=== PATIENT | male | born 1960 | race Caucasian/White ===

== ENCOUNTER 2019-03-04 12:14 | Emergency (ER) | payer OTHER, SELFPAY ==
[2019-03-04 12:17] VITALS: BP 146/99; PULSE 81; RESP 18; TEMP 36.4; O2SAT 97
--- NOTE | 2019-03-04 12:21 | W.ED.GENAD ---
Discharge Plan Disposition Patient Disposition: HOME Condition: Improving Discharge Details Chief Complaint: SutureRem Clinical Impression: Encounter for removal of sutures Primary Care Provider: Unknown,Unknown ED Provider: Zita Landry Home Meds and New Rx's Prescriptions: Continued acetaminophen [Tylenol Extra Strength] 500 MG tablet 1,000 mg PO PRN PRNRF: 0 Discharge Instructions Additional Instructions: Return for any acute concerns. May remove Steri-Strips in approximately 3 days time. Medical Decision Making 58-year-old male presents for evaluation of suture removal. He was seen at [facility] 1 week ago. Sutures removed, Steri-Strips placed. Patient stable for discharge to home. HPI General Mode of arrival: ambulatory. Date/Time Provider Initiated Documentation: 03/04/19 12:19. Limitations to Documentation: no limitations. Information obtained by: patient. History of Present Illness 58 year old M presents to the emergency department with the chief complaint of Visit for suture removal, no other complaints, Patient did receive the following treatments prior to arrival, none Related Data Home Medications Medication Instructions Recorded Confirmed acetaminophen [Tylenol Extra 1,000 mg PO PRN PRN 05/23/13 03/04/19 Strength] Allergies Allergy/AdvReac Type Severity Reaction Status Date / Time No Known Allergies Allergy Verified 06/21/18 08:04 General Stated Complaint: SutureRem LISSETTE: 5 Review of Systems Review of Systems No fever, drainage. 6 systems reviewed and otherwise neg [facility] [place] Social History Smoking/Tobacco Use Status: Current every day Alcohol Intake: former Drug use: Never Do you feel safe at home: Yes Do you feel safe in your relationship?: Yes Exam Narrative Exam Narrative: GEN: awake, alert, oriented 3. Pleasant, well groomed, interactive. HEAD: Normocephalic, atraumatic ENT: Mucous membranes moist, oropharynx unremarkable, External ear exam unremarkable. Healing laceration left infraorbital/maxilla. EYES: PERRL, EOMI EXT: Full ROM, no edema, no rash Neuro: Grossly normal neurologic exam, conversant, interactive. Psych: Speech fluent, thoughts congruent, affect normal Course Vital Signs Temperature 36.4 C 03/04/19 12:17 Pulse 81 03/04/19 12:17 Respiratory Rate 18 03/04/19 12:17 Blood Pressure 146/99 H 03/04/19 12:17 Pulse Oximetry 97 03/04/19 12:17 Temperature 36.4 C 03/04/19 12:17 Temperature Source Skin 03/04/19 12:17 Pulse 81 03/04/19 12:17 Respiratory Rate 18 03/04/19 12:17 Respiratory Effort Non-Labored 03/04/19 12:20 Blood Pressure 146/99 H 03/04/19 12:17 Blood Pressure Position Sitting 03/04/19 12:17 Pulse Oximetry 97 03/04/19 12:17 Oxygen Delivery Method Room Air 03/04/19 12:17 Oxygen Flow Rate 0 03/04/19 12:17 Pain Level 0 03/04/19 12:17
== END 2019-03-04 12:43 | disposition home or self-care (01) ==
PROVIDERS: Emergency Provider Emergency Medicine
DX: S01.312D Laceration without foreign body of left ear, subsequent encounter (principal); W22.8XXD Striking against or struck by other objects, subsequent encounter; Z48.02 Encounter for removal of sutures
CPT/HCPCS: 99282; 99281

== ENCOUNTER 2019-04-04 00:25 | Outpatient (CLI) | payer OTHER, SELFPAY ==
--- NOTE | 2019-04-04 14:57 | DI.US_ITS ---
EXAM: US SCROTUM CLINICAL HISTORY: TESTICULAR PAIN LT, N50.812, PAIN X 3 YEARS, WORSENING, RECEIVED ANTIBIOTICS 5-6 M ONTHS AGO AT ANOTHER HOSPITAL AND FELT NO RELIEF. TECHNIQUE: Ultrasound was performed using standard protocol. COMPARISON: No exams were available for comparison FINDINGS: Right testicle measures 4.1 x 2.1 x 3.8 cm. The right epididymis measures 1.5 x 1.2 x 1.0 cm. The left testicle measures 3.3 x 2.9 x 3.6 cm. The left epididymis measures 1.0 x 0.8 x 0.8 cm. The testicular vascularity is normal bilaterally. There is no evidence of a mass. There are small bilat eral hydroceles.
== END 2019-04-04 00:45 ==
PROVIDERS: PCP Nurse Practitioner Family; Visit Provider Nurse Practitioner Family
DX: N50.812 Left testicular pain (principal); N43.2 Other hydrocele
CPT/HCPCS: 76870

== ENCOUNTER 2019-04-09 00:44 | Outpatient (CLI) | payer SELFPAY ==
[2019-04-09 11:03] LABS: Abs Immature Grans 0.02 k/cumm (0.0-0.09); Absolute Eosinophil Count 0.09 k/cumm (0.0-0.7); Absolute Lymphocyte Count 1.63 k/cumm (1.2-3.4); Absolute Monocyte Count 0.41 k/cumm (0.11-0.7); Absolute Neutrophil Count 2.88 k/cumm (1.2-6.7); Basophils % 1.9; Eosinophils % 1.8; HCT 43.2 % (40.0-50.0); HGB 14.6 g/dL (13.5-17.5); Immature Grans % 0.4; Lymphocytes % 31.8; Mean Corp. HGB Concentration 33.8 g/dL (32.0-36.0); Mean Corpuscular Hemoglobin 28.9 pg (27.0-33.0); Mean Corpuscular Volume 85.5 fL (80-95); Mean Platelet Volume 10.9 fL (8.0-11.0); Neutrophils % 56.1; Platelet Count 202 x1000/uL (130-400); RBC 5.05 m/cumm (4.50-6.00); RBC Distribution Width 13.4 % (11.8-14.1); White Blood Cell Count 5.13 k/cumm (4.4-10.8)
[2019-04-09 11:40] LABS: ALT 42 U/L (16-63); AST 21 U/L (15-37); Albumin 4.1 g/dL (3.4-5.0); Alkaline Phosphatase 86 U/L (46-116); Anion Gap 9.5 mmol/L (3-11); BUN 19 mg/dL (7-18); Bilirubin, Total 0.7 mg/dL (0.2-1.0); CO2 26.5 mmol/L (21.0-32.0); Calcium 8.4 mg/dL (8.5-10.1); Calculated LDL 100 mg/dL; Chloride 104 mmol/L (98-107); Cholesterol 166 mg/dL (50-200); Glucose 100 mg/dL (70-100); HDL Cholesterol 41 mg/dL (40-60); Potassium 4.2 mmol/L (3.5-5.1); Sodium 140 mmol/L (136-145); Total Protein 7.2 g/dL (6.4-8.2); Triglyceride 128 mg/dL (30-150)
== END 2019-04-09 01:04 ==
PROVIDERS: PCP Nurse Practitioner Family; Visit Provider Nurse Practitioner Family
DX: N50.812 Left testicular pain (principal); R13.10 Dysphagia, unspecified; J39.2 Other diseases of pharynx; K62.5 Hemorrhage of anus and rectum; R55 Syncope and collapse; R03.0 Elevated blood-pressure reading, without diagnosis of hypertension
CPT/HCPCS: 36415; 80053; 80061; 85025

== ENCOUNTER 2019-05-05 01:06 | Outpatient (CLI) | payer SELFPAY ==
--- NOTE | 2019-05-05 15:08 | DI.CT_ITS ---
EXAM: CT NECK W CLINICAL HISTORY: TONGUE LESION K14.8, LT NECK PAIN M54.2, NECK FULLNESS R22.1 TECHNIQUE: CT examination of cervical region was performed with a bolus infusion of 100 cc of Omnipa que 350. COMPARISON: No exams were available for comparison FINDINGS: Images obtained through the lung apices show no specific abnormality. Visualized aortic arch is un remarkable. No superior mediastinal adenopathy. No cervical adenopathy or mass. Salivary glands un remarkable in appearance. Note is made of lack of visualization of the vocal cords and supraglottic structures. Although no def inite mass is identified, the possibility of mass of the cords or the supraglottic region is not excl uded. Correlation with repeat CT, or direct laryngoscopy, is recommended. Visualized paranasal sinuses show slight mucoperiosteal thickening. Visualized portions of the brain are unremarkable. IMPRESSION: No evidence of a cervical mass or adenopathy. However note is made of nonvisualization of the vocal cords and surrounding structures, the possibility of laryngeal neoplastic lesion at this site is not excluded. Repeat CT or direct laryngoscopy recommended for further evaluation.
== END 2019-05-05 01:26 ==
PROVIDERS: PCP Nurse Practitioner Family; Visit Provider Otolaryngology Otolaryngology/Facial Plastic Surgery
DX: K14.8 Other diseases of tongue (principal); M54.2 Cervicalgia; R22.1 Localized swelling, mass and lump, neck; J38.7 Other diseases of larynx
CPT/HCPCS: 70491

== ENCOUNTER 2019-06-30 10:11 | Day surgery (SDC) | payer SELFPAY ==
[2019-06-30 10:29] VITALS: BP 147/108; PULSE 72; RESP 16; TEMP 35.7; O2SAT 98
[2019-06-30] MEDS: Lactated Ringers 1,000 ML 80 ML IV (11:00)
--- NOTE | 2019-06-30 14:40 | STOM_PTH ---
PATIENT: Rustam Horner LOC: [facility] U#:[id number] AGE/SX: 58/M ROOM: RE06/30/[address]: Romana Donnelly : 1960 BED: DIS: 06/30/2019 SPEC #: [id number] RECD: 06/30/19 17:31 STATUS: ANUSHA CASSIDY #: [id number] ANA MARIA: 06/30/19 14:[address]: Romana Donnelly DEPT: Surgical Specimen RECD BY: Kimmie Cordova ENTERED: 06/30/19 17:32 SP TYPE: STOMACH OTHR DR: Makayla Vital Tissues: 1 - BIOPSY BOWEL 2 - STOMACH BIOPSY 3 - STOMACH BIOPSY 4 - ESOPHAGUS BIOPSY 5 - ESOPHAGUS BIOPSY Procedures: GROSS AND MICRO LEVEL 4 Comments: [id number]
--- NOTE | 2019-06-30 15:19 | W.PM.ENDDOP ---
Date of service: 06/30/19 Time of Service: 15:19 Endoscopy Report DATE OF PROCEDURE: 06/30/19 PRE-OP DIAGNOSIS: gerd POST-OP DIAGNOSIS: other (prob barett's- path pd esophagitis/duodenitis/gastritis/diverticula ) PROCEDURE: egd & Bx CE ANESTHESIA: GETA ESTIMATED BLOOD LOSS: 10 PATHOLOGY: other DISPOSITION: same day PREP: Miralax/Dulcolax COLONOSCOPY RETRACTION TIME: 12 mins PROCEDURE DESCRIPTION: After informed consent was obtained the patient was take to the procedure room and placed in a supine position. Monitors were applied and a time out was done. The patients name, date of , procedure type, allergies to medications and metal in their body was reviewed. A bite block was placed and the patient was sedated. Once sedated and comfortable the gastroscope was advanced through the oropharynx which was grossly normal into the esophagus. The proximal and mid-esophagus were nl. In the distal esophagus there was sBarett's. The scope was advanced into the stomach and through the pylorus into the 3rd portion of the duodenum. The duodenum shows moderate doudentis. No ulcers or active/old bleeding. Biopsies were done. All specimens are retrieved and no bleeding is noted. The scope was retracted back into the stomach and biopsies were done to rule out H. pylori. There were several small punctate ulcers within the antrum. There is no signs of active or old bleeding. Biopsies are taken. There is moderate gastritis in a striped fashion in the body of the stomach. The scope was retroflexed. The cardia and fundus were noted to be normal. There no hiatal hernia noted. The scope was retracted back into the esophagus and biopsies were done of the GE junction to rule out Platt's. The Z line was irregular. there is one lg tongue of barett's, adn one smaller. and one small island of meteplastic gastric tissue. The GE junction was at 38 cm. The scope was removed and scopes exchanged. After informed consent was obtained the patient was taken to the procedure room and placed in a left decubitous position. Monitors were applied and a time out was done. The patients name, date of , procedure, allergies to medications and metal in their body was reviewed. The patient was then sedated. Once sedated and comfortable a rectal exam was done. External exam was normal. Internal exam revealed a normal sphincter tone and no palpable masses. The prostate nl. The scope was then introduced and retrofelexed. Grade I internal hemorrhoids were identified. The scope was then advanced to the cecum [] difficulty. The TI and appendiceal orifice were identified. The prep was poor. The scope was then slowly retracted over 12 minutes back into the rectum. The colon was extensively washes. Lesions less than 5 mm may have been missed. Polyps were removed no. The scope was removed and the patient was woken up and taken back to Same day surgery in stable condition. The patient tolerated the procedure well and there were no immediate complications. Follow up: The patient should follow up in 10 years unless they develop changes in bowel habits or other new gastrointestinal complaints.
--- NOTE | 2019-06-30 15:24 | W.PM.DSUDISC ---
Discharge Plan Disposition Patient Disposition: HOME Condition: Stable Discharge Details Reason For Visit: stomach and colon scope Attending Provider: Romana Donnelly Primary Care Provider: Makayla Vital Home Meds and New Rx's Prescriptions: New sucralfate [Carafate] 1 gram tablet 1 gm PO QACHS Qty: 120 RF: 12 Discontinued polyethylene glycol 3350 17 gram/dose powder 238 g PO ONCE Qty: 238 RF: 0 bisacodyl [Dulcolax (bisacodyl)] 5 mg tablet,delayed release (DR/EC) 5 mg PO ONCE Qty: 4 RF: 0 No Action omeprazole 40 mg capsule,delayed release(DR/EC) 40 mg PO DAILY RF: 0 acetaminophen [Tylenol Extra Strength] 500 MG tablet 1,000 mg PO PRN PRNRF: 0 Discharge Instructions Instructions: Gastroesophageal Reflux Disease (GEN), High Fiber Diet (GEN) Additional Instructions: Findings:severe esophagitis/gastritis/duodenitis. Possible Barett's Try to cut down on tobacco and alcohol Continue with lifestyle modifications: no alcohol, tobacco products, Aspirin or NSAID's (ibuprofen, Motrin, Naprosyn, aleve, etc), soda pop/any carbonated beverages, caffeine (including tea & chocolate). try to avoid: acidic foods, (tomatoes, citrus, onions, peppermints) spicy or fried/fatty foods. Do not lie down for 30 minutes after eating, and do not eat 2 hours prior to bedtime. Avoid wearing tight fitting clothing/ belts -cont on omeprazole Carafate 4x daily diverticular Dx- follow a high fiber diet and make sure you are moving your bowels regularly and not straining to go to the bathroom. Follow up: in office in 2wks no ibuporfen or NSAID's for 2wks Please call if you develop: fevers >101.5 Nausea or Vomiting Abdominal pain that is not transient DAY SURGERY UNIT POST COLONOSCOPY INSTRUCTIONS 1. Because there will be medication in your system for the next 24 hours, you may feel a little sleepy. Your coordination will be affected. Therefore: a. Do not drive or operate dangerous equipment for 24 hours. b. Do not drink alcohol beverages for 24 hours (not even beer). c. Plan to go home and rest for the day. 2. Generally there are no restrictions on your activity after a day or so has gone by, but you may feel a bit fatigued for a few days. 3 After you arrive home you may have a light meal and return to a normal diet as you can tolerate it without feeling sick to your stomach. 4. After surgery, you may feel pain or discomfort. This should be only transient, but if it persists please contact your doctor. 5. If there are any questions regarding the findings of your procedure, please feel free to contact your doctor. 6. If you are unable to contact your doctor with a problem, contact the hospital at [phone]. 7. Continue all your regular medications unless directed otherwise. I understand the above instructions and have no questions. Signature of Patient or Responsible Adult Escort Date/Time Name of Responsible Adult Escort Signature of Nurse Date/Time Stand Alone Forms: Colonoscopy Post Instructions, DSU Post EGD Instructions, Press Ganey (DSU) Activity:: no strenous activity or heavy lifting x 24 hrs Diet:: small light meals x 24 hrs Discharge Orders Discharge Orders: Discharge Order (Routine); Ordered 06/30/19 Ordered By: Romana Donnelly DS: Diagnosis Discharge Diagnosis (1) GERD (gastroesophageal reflux disease): Status: Chronic (2) Duodenitis: Status: Acute (3) Gastritis: Status: Acute (4) GERD with esophagitis: Status: Acute (5) Diverticula of colon: Status: Acute
[2019-06-30 15:26] VITALS: BP 99/57; RESP 16; O2SAT 92
[2019-06-30 16:05] VITALS: BP 151/97; PULSE 64; RESP 16; TEMP 36.3; O2SAT 98
== END 2019-06-30 16:35 | disposition home or self-care (01) ==
PROVIDERS: PCP Nurse Practitioner Family; Visit Provider Surgery
PROC: (CPT 43239; principal; 2019-06-30 10:45)
DX: Z12.11 Encounter for screening for malignant neoplasm of colon (principal); K64.0 First degree hemorrhoids; K21.0 Gastro-esophageal reflux disease with esophagitis; K29.50 Unspecified chronic gastritis without bleeding; B96.81 Helicobacter pylori [H. pylori] as the cause of diseases classified elsewhere; F17.220 Nicotine dependence, chewing tobacco, uncomplicated; F10.20 Alcohol dependence, uncomplicated
CPT/HCPCS: 43239; 45378; 88305

== ENCOUNTER 2023-08-31 18:14 | Outpatient (REF) | payer MEDICAID, SELFPAY ==
[2023-08-31 15:22] LABS: Anion Gap 14.5 mmol/L (3-11); BUN 17 mg/dL (7-18); CO2 22.5 mmol/L (21.0-32.0); CREATININE 1.1 mg/dL (0.70-1.30); Calcium 9.1 mg/dL (8.5-10.1); Chloride 101 mmol/L (98-107); Estimated GFR 76.85 (mL/min/1.73m2); Glucose 113 mg/dL (74-106); Potassium 4.1 mmol/L (3.5-5.1); Sodium 138 mmol/L (136-145)
== END 2023-08-31 18:15 | disposition home or self-care (01) ==
LOC: NCHCN 18:14
PROVIDERS: PCP Nurse Practitioner Family; Referring Provider Nurse Practitioner Family; Visit Provider Nurse Practitioner Family
DX: I10 Essential (primary) hypertension (principal)
CPT/HCPCS: 80048

== ENCOUNTER 2023-09-03 14:31 | Outpatient (REF) | payer MEDICAID, SELFPAY ==
[2023-09-03 15:29] LABS: Abs Immature Grans 0.02 10^3/uL (0.0-0.06); Absolute Basophil Count 0.05 10^3/uL (0.0-0.2); Absolute Eosinophil Count 0.09 10^3/uL (0.0-0.7); Absolute Monocyte Count 0.42 10^3/uL (0.1-0.8); Absolute Neutrophil Count 3.24 10^3/uL (1.2-6.7); Basophils % 0.9; Eosinophils % 1.6; HCT 45.1 % (40.0-50.0); HGB 15.2 g/dL (13.5-17.5); Immature Grans % 0.4; MCH 30.3 pg (27.0-33.0); MCHC 33.7 % (32.0-36.0); MCV 90 fL (80-95); MPV 11.3 fL (8.0-11.0); Monocytes % 7.5; Neutrophils % 57.6; Platelet Count 197 10^3/uL (130-400); RBC 5.01 10^6/uL (4.36-5.78); RDW 12.2 % (11.8-14.1); RDW-SD 40.3 fL; WBC 5.62 10^3/uL (4.4-10.8)
[2023-09-03 15:40] LABS: Prothrombin Time 10.1 sec (9.1-11.1)
[2023-09-03 15:42] LABS: ALT 48 U/L (16-63); AST 29 U/L (15-37); Albumin 3.7 g/dL (3.4-5.0); Alkaline Phosphatase 107 U/L (46-116); Anion Gap 11.9 mmol/L (3-11); BUN 20 mg/dL (7-18); Bilirubin, Total 0.7 mg/dL (0.2-1.0); CO2 24.1 mmol/L (21.0-32.0); CREATININE 1.2 mg/dL (0.70-1.30); Calcium 8.8 mg/dL (8.5-10.1); Chloride 103 mmol/L (98-107); Estimated GFR 69.23 (mL/min/1.73m2); Glucose 96 mg/dL (74-106); Potassium 4.2 mmol/L (3.5-5.1); Sodium 139 mmol/L (136-145)
== END 2023-09-03 14:32 | disposition home or self-care (01) ==
LOC: NCHCN 14:31
PROVIDERS: PCP Nurse Practitioner Family; Referring Provider Student in an Organized Health Care Education/Training Program; Visit Provider Student in an Organized Health Care Education/Training Program
DX: R16.0 Hepatomegaly, not elsewhere classified (principal)
CPT/HCPCS: 80053; 85025; 85610

== ENCOUNTER → 2023-09-16 02:33 | Outpatient (CLI) | payer MEDICAID, SELFPAY ==
--- NOTE | 2023-09-16 | DI.US_ITS ---
Exam(s) US ABDOMEN EXAM: US ABDOMEN CLINICAL HISTORY: HEPATOMEGALY,R16.0,EXTENSIVE ALCOHOL USE,PALPABLE LIVER TECHNIQUE: Ultrasound abdomen performed using standard protocol. COMPARISON: No exams were available for comparison FINDINGS: LIVER: 16.2 cm in length. Markedly increased echogenicity and decreased through transmission consist ent with moderate to severe hepatic steatosis. Focal area of sparing near falciform ligament. No ev idence of varices. No suspicious mass identified. No definite surface nodularity. GALLBLADDER: No evidence of cholelithiasis. No evidence of wall thickening. No pericholecystic fluid identified. WANG'S SIGN: Negative. BILIARY SYSTEM: No intrahepatic or extrahepatic biliary ductal dilation. KIDNEYS: Kidneys are symmetric in size. No evidence of renal calculi. No evidence of hydronephrosis. No renal mass or cyst identified. PANCREAS: Normal where visualized. SPLEEN: Not enlarged. ABDOMINAL AORTA AND IVC: Visualized portions normal caliber. ASCITES: None seen. IMPRESSION: Moderate to severe hepatic steatosis. DATA REPOSITORY:
== END ==
PROVIDERS: PCP Student in an Organized Health Care Education/Training Program; Visit Provider Student in an Organized Health Care Education/Training Program
DX: K76.0 Fatty (change of) liver, not elsewhere classified
CPT/HCPCS: 76700

== ENCOUNTER 2023-09-20 11:28 | Emergency (ER) | payer MEDICAID, SELFPAY ==
[2023-09-20] VITALS (21 sets, daily range): BP systolic 131–159; BP diastolic 82–99; PULSE 61–78; RESP 9–20; O2SAT 95–97
--- NOTE | 2023-09-20 11:30 | RT.EKG_ITS ---
APPROVED REPORT Exam: Resting ECG Reason for Exam: Chest Pain Patient Location: E HR:75 bpm ECG Measurements Heart Rate 75 AXIS MT 190 P 47 QRSd 97 QRS -22 QT 388 T 18 QTc 435 Conclusion Sinus rhythm...normal P axis, V-rate 60- 99 Inferior infarct, old...Q >35mS, II III aVF Anterior infarct, old...Q >40mS, abnormal ST-T, V2-V5 sinus rhythm, left axis, q waves III aVf and anterior leads
--- NOTE | 2023-09-20 11:45 | DI.RAD_ITS ---
Exam(s) XR CHEST 2V PA LATERAL EXAM: XR CHEST 2V PA LATERAL CLINICAL HISTORY: chest pain TECHNIQUE: 2D digital imaging was performed of the chest. Two images were obtained. PA and lateral views were obtained. COMPARISON: No exams were available for comparison FINDINGS: MEDIASTINUM: Normal. HEART: Normal. PULMONARY VASCULATURE: Normal. LUNGS: Clear. PLEURAL SPACE: No pleural effusion or pneumothorax. BONE:Within normal limits for the patient's age. There is an old healed right clavicular fracture. OTHER FINDINGS:Normal. IMPRESSION: No acute pulmonary findings. DATA REPOSITORY: RADIATION DOSE DELIVERED:
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
[2023-09-20] MEDS: Normal Saline 1,000 ML 1000 ML IV (11:59)
[2023-09-20] MEDS: Ondansetron 4 MG/2 ML VIAL IVP (12:01)
[2023-09-20] MEDS: Pantoprazole 40 MG VIAL IVP (12:08)
[2023-09-20 12:09] LABS: Abs Immature Grans 0.02 10^3/uL (0.0-0.06); Absolute Basophil Count 0.07 10^3/uL (0.0-0.2); Absolute Eosinophil Count 0.03 10^3/uL (0.0-0.7); Absolute Lymphocyte Count 1.61 10^3/uL (1.2-3.4); Absolute Monocyte Count 0.53 10^3/uL (0.1-0.8); Absolute Neutrophil Count 4.04 10^3/uL (1.2-6.7); Basophils % 1.1; Eosinophils % 0.5; HCT 46.3 % (40.0-50.0); Immature Grans % 0.3; Lymphocytes % 25.6; MCH 30.5 pg (27.0-33.0); MCHC 34.6 % (32.0-36.0); MCV 88 fL (80-95); MPV 10.8 fL (8.0-11.0); Monocytes % 8.4; Neutrophils % 64.1; Platelet Count 213 10^3/uL (130-400); RBC 5.25 10^6/uL (4.36-5.78); RDW-SD 38.2 fL
[2023-09-20 12:23] LABS: PTT Activated 24.5 sec (23.6-32.8); Prothrombin Time 10.5 sec (9.1-11.1)
[2023-09-20 12:30] LABS: ALT 53 U/L (16-63); AST 28 U/L (15-37); Albumin 3.9 g/dL (3.4-5.0); Alkaline Phosphatase 102 U/L (46-116); Anion Gap 12.9 mmol/L (3-11); BUN 17 mg/dL (7-18); Bilirubin, Total 0.9 mg/dL (0.2-1.0); CO2 25.1 mmol/L (21.0-32.0); CREATININE 1.2 mg/dL (0.70-1.30); Calcium 8.8 mg/dL (8.5-10.1); Chloride 102 mmol/L (98-107); Estimated GFR 69.23 (mL/min/1.73m2); Glucose 109 mg/dL (74-106); Lipase 49 U/L (16-77); Potassium 3.8 mmol/L (3.5-5.1); Sodium 140 mmol/L (136-145); Total Protein 7.8 g/dL (6.4-8.2); Troponin I < 50 ng/L (< or =60)
--- NOTE | 2023-09-20 12:40 | DI.VRAD_ITS ---
PROCEDURE INFORMATION: Exam: XR Chest Exam date and time: 09/20/2023 12:31 PM Age: 62 years old Clinical indication: Other: Chest pain TECHNIQUE: Imaging protocol: Radiologic exam of the chest. Views: 2 views. COMPARISON: MRI CHEST WO 12/29/2017 4:35 PM FINDINGS: Lungs: Unremarkable. No consolidation. Pleural spaces: Unremarkable. No pleural effusion. No pneumothorax. Heart/Mediastinum: Unremarkable. No cardiomegaly. Vasculature: Unfolding of the thoracic aorta. Bones/joints: Multilevel anterior osteophytes of the thoracic spine consistent with mild degenerative disease. IMPRESSION: No acute cardiopulmonary process. Dictated and Authenticated by: Hemanth Romo MD. Ordering:ANN-MARIE Meléndez MD
== END 2023-09-20 13:37 | disposition home or self-care (01) ==
LOC: ER 13:32
PROVIDERS: Emergency Provider Emergency Medicine; PCP Student in an Organized Health Care Education/Training Program
DX: R07.9 Chest pain, unspecified (principal); E78.5 Hyperlipidemia, unspecified; F17.290 Nicotine dependence, other tobacco product, uncomplicated
CPT/HCPCS: 80053; 83690; 93005; 96361; 96374; 96375; 99284; 71046; 84484; 85025; 85610; 85730; 93010; J2405; J2470

== ENCOUNTER 2023-10-01 15:13 | Outpatient (REF) | payer MEDICAID, SELFPAY ==
[2023-10-01 19:29] LABS: Abs Immature Grans 0.01 10^3/uL (0.0-0.06); Absolute Basophil Count 0.09 10^3/uL (0.0-0.2); Absolute Eosinophil Count 0.09 10^3/uL (0.0-0.7); Absolute Lymphocyte Count 1.89 10^3/uL (1.2-3.4); Absolute Monocyte Count 0.46 10^3/uL (0.1-0.8); Absolute Neutrophil Count 3.37 10^3/uL (1.2-6.7); Basophils % 1.5; Eosinophils % 1.5; HCT 45.9 % (40.0-50.0); HGB 15.1 g/dL (13.5-17.5); Immature Grans % 0.2; MCHC 32.9 % (32.0-36.0); MCV 91 fL (80-95); MPV 11.3 fL (8.0-11.0); Monocytes % 7.8; Platelet Count 190 10^3/uL (130-400); RBC 5.03 10^6/uL (4.36-5.78); RDW 12.2 % (11.8-14.1); RDW-SD 40.8 fL; WBC 5.91 10^3/uL (4.4-10.8)
[2023-10-01 19:57] LABS: ALT 51 U/L (16-63); AST 29 U/L (15-37); Alkaline Phosphatase 99 U/L (46-116); Anion Gap 10.5 mmol/L (3-11); BUN 23 mg/dL (7-18); Bilirubin, Total 0.6 mg/dL (0.2-1.0); CO2 25.5 mmol/L (21.0-32.0); CREATININE 1.2 mg/dL (0.70-1.30); Chloride 105 mmol/L (98-107); Estimated GFR 69.23 (mL/min/1.73m2); Glucose 89 mg/dL (74-106); Potassium 4.3 mmol/L (3.5-5.1); Sodium 141 mmol/L (136-145); Total Protein 7.4 g/dL (6.4-8.2)
== END 2023-10-01 15:14 | disposition home or self-care (01) ==
LOC: NCHCN 15:13
PROVIDERS: PCP Student in an Organized Health Care Education/Training Program; Visit Provider Student in an Organized Health Care Education/Training Program
DX: R07.9 Chest pain, unspecified (principal)
CPT/HCPCS: 80053; 85025

== ENCOUNTER → 2023-10-19 00:54 | Outpatient (CLI) | payer MEDICAID, SELFPAY ==
--- NOTE | 2023-10-19 | DI.RAD_ITS ---
Exam(s) XR CHEST 2V PA LATERAL EXAM: XR CHEST 2V PA LATERAL CLINICAL HISTORY: CHEST PAIN R07.9. TECHNIQUE: 2D digital imaging was performed. COMPARISON: CR,XR XR CHEST 2V PA LATERAL from 09/20/2023 FINDINGS: 2 views: Heart size is normal. The mediastinum is not widened. Lungs are clear. No infiltrates nor pleural effusions. IMPRESSION: No acute pulmonary findings. No significant change from 09/20/2023. DATA REPOSITORY: RADIATION DOSE DELIVERED:
--- NOTE | 2023-10-19 | ETT_ITS ---
APPROVED REPORT Exam: Exercise Treadmill Patient Location: Out-Patient Room/Bed: Stress Nurse: Paloma Hoang RN Ordering Provider:SWAPNIL SOTO, Contact Number: [phone] BMI: 33.77 Baseline Rhythm: Sinus Rhythm Indications: chest pain Medical History Medical History: GERD, esophagitis, gastritis, duodenitis, alcohol abuse, chewing tobacco/nicotine de pendence, arthritis, HLD, HTN Cardiac Medications: Lisinopril, amlodipine, omeprazole Allergies: NKA Cardiac Risk Factors: HTN, HLD Previous Cardiac Procedures: None Pretest Chest Pain Characteristics: None Exercise History: Physically active Physical Disabilities: None Lung Sounds: Clear to auscultation Heart Sounds: Regular Stress Test Details Test: Exercise stress testing was performed using a John protocol. Rest Stress HR Resting HR Supine: 66 bpm Max Heart Rate (APMHR): 160 bpm Resting HR Standin bpm Target HR (85% APMHR): 136 bpm Max HR Achieved: 130 bpm % of APMHR: 81 Recovery HR: 82 bpm HR response to stress: Normal HR response to stress BP Resting BP Supine: 152/98 mmHg Resting BP Standin/90 mmHg Max BP: 184/94 mmHg Recovery BP: 170/108 mmHg BP response to stress: Normal blood pressure response to stress. ECG Resting ECG: Sinus Rhythm Ectopy: None Stress ECG: Sinus Tachycardia, Sinus Rhythm ST Change: Nondiagnostic low heart rate, No significant ST segment changes noted Arrhythmia: VPC's Comment: couplets Recovery ECG: Sinus Rhythm Recovery ST Change: Nondiagnostic low heart rate, No significant ST segment changes noted Recovery Arrhythmia: None Clinical Reason for Termination: Fatigue Stress Symptoms: None Exercise duration: 8 min59 sec Highest Stage Reached: Stage 3: 3.4 mph at 14% grade. Exercise capacity: 10.16 METs Nieves Treadmill Score: 8.6 Rate Pressure Product: 70628 Stress ECG Conclusion 1. Resting EKG showed poor R wave progression 2. Patient exercised on the John protocol, completed workload of 10.16 METS. 3. Normal hemodynamic response to exercise. Patient achieved 81% of rate for age 4. At this submaximal heart rate, there was no electrocardiographic evidence of ischemia 5. PVCs were noted Nieves Treadmill Score is 8.6 which is Low risk. Stress Test Summary STAGE Time (mins) Speed (mph) Grade (%) HR BP SpO2 SYMPTOMS METS Supine 66 152/98 98 Standing 68 148/90 1 3 1.7 10 99 168/90 98 4.5 2 6 2.5 12 115 180/80 96 7 1 min recovery 112 182/90 98 3 min recovery 92 184/94 98 6 min recovery 82 170/108 96
--- NOTE | 2023-10-19 09:30 | DI.US_ITS ---
APPROVED REPORT EXAM: Comprehensive 2D, Doppler, and color-flow Echocardiogram Patient Location: Out-Patient Construction Administrator: Jay Goldberg RDCS (AE) Indications: Dyspnea Conclusion Mild concentric left ventricular hypertrophy. EF is 60-65%. wall motion is normal Normal right ventricular size and function Both atria are normal in size There is no structural or hemodynamically significant valvular disease Wall motion Left Ventricle The left ventricle is normal size. The left ventricular systolic function is normal. The left ventric ular ejection fraction is within the normal range. Mild concentric left ventricular hypertrophy. Ther e is normal LV segmental wall motion. There is no ventricular septal defect visualized. LVEF is 60-65 %. Right Ventricle The right ventricle is normal size. The right ventricular systolic function is normal. Atria The left atrium size is normal. The right atrium size is normal. Interatrial septum is intact without evidence of ASD or PFO. Aortic Valve Aortic valve is trileaflet. There is no aortic valvular stenosis. No aortic regurgitation is present. Mitral Valve The mitral valve is normal in structure. No evidence of mitral valve stenosis. Trace mitral regurgita tion. Tricuspid Valve The tricuspid valve is normal in structure. There is no tricuspid valve stenosis. Trace tricuspid reg urgitation. Unable to assess PA pressure. Pulmonic Valve The pulmonary valve is normal in structure. There is no pulmonic valvular stenosis. There is no pulmo enrrique valvular regurgitation. Great Vessels The aortic root is normal in size. The ascending aorta is normal in size. Aortic arch is not well vis ualized. IVC is normal in size and collapses >50% with inspiration. Pericardium There is no pericardial effusion. 2D Dimensions IVSD d PLAX 1.29 cm M: 0.6-1.2 Ao Root d 3.76 cm M: 3.1 - 3.7 LVPW d PLAX 1.25 cm M: 0.6 - 1.2 Ao Asc Diam d 3.48 cm M: 2.6 - 3.4 LVID d PLAX 5.57 cm M: 4.2 - 5.8 LVDs 3.57 cm M: 2.5 - 4.0 LV EF Teichholz 64.7 % FS 35.81 % LV EDV (Teich) 151.7 mL LV ESV (Teich) 53.5 mL Stroke Vol Index (Teich) 48.12 M-Mode TAPSE 2.13 cm (M/F) >1.7 Auto EF LV EDV A4C 178.5 mL LV EDV A2C 175.2 mL LV EDV BP 180.0 mL LV ESV A4C 71.9 mL LV ESV A2C 62.5 mL LV ESV BP 67.4 mL LVEF(%) A4C 59.7 % LVEF(%) A2C 64.3 % LVEF(%) BP 62.6 % LV SV A4C 106.6 ml LV SV A2C 112.7 ml LV SV BP 112.6 ml LV CO A4C 7.1 L/min LV CO A2C 7.3 L/min LV CO BP 7.2 L/min HR A4C 66.30 BPM HR A2C 64.75 BPM LV EDV Index (BP) LA Volume LA Length A4C 3.7 cm LA Length A2C 4.1 cm LA Area A4C s 8.75 cm2 LA Area A2C s 15.08 cm2 LA Vol A4C A-L 17.41 mL LA Vol A2C A-L 46.74 mL LA Vol Biplane A-L 30.0 mL LA Vol/BSA A4C A-L LA Vol/BSA A2C A-L LA Vol/BSA BP A-L 14.7 mL/m2 LA Vol A4C MOD 16.0 mL LA Vol A2C MOD 42.5 mL LA Vol BP MOD 27.1 mL RA Volume RA Area A4C 9.1 cm2 RA ESV A4C (A-L) 16.8mL RA Vol/BSA A4C A-L RA Length A4C 4.2 cm RA ESV A4C (MOD) 16.6mL LV Diastology MV E' medial 0.066 (>0.07 m/s) MV E Vmax 0.57 (0.4-1.3 m/s) MV E/E' MED 8.60 (<14) MV A Vmax 0.80 (0.4-1.3 m/s) MV E' lateral 0.058 (>0.1 m/s) E/A Ratio 0.7 MV E/E' LAT 9.84 (<14) MV E' Average 0.062 m/s MV E/E'(average) 9.18 Aortic Valve AoV Vmax 1.18 m/s LVOT Vmax 0.83 m/s AoV Peak Grad 5.6 mmHg LVOT Peak Grad 2.8 mmHg AoV Area (Vmax) 2.30 cm2 LVOT VTI 0.190 m AoV VTI 0.277 m LVOT Mean Grad 1.4 mmHg AoV Mean Zachary. 0.88 m/s LVOT SV 61.78 mL AoV Mean Grad 3.5 mmHg LVOT Diam s 2.00 cm AoV Area (VTI) 2.23 cm2 Velocity Ratio 0.70 Mitral Valve MV DT 171 (160-240 msec) Pulmonary Valve PV Vmax 1.44 (0.5-1.5 m/s) RVOT Vmax 0.73 m/s PV Peak Grad 8.2 mmHg RVOT Peak Gr. 2.1 mmHg PV Mean Zachary 0.97 m/s RVOT VTI 0.122 m PV Mean Grad 4.4 mmHg RVOT Mean Gr. 1.0 mmHg
== END ==
PROVIDERS: PCP Student in an Organized Health Care Education/Training Program; Visit Provider Student in an Organized Health Care Education/Training Program
DX: R06.09 Other forms of dyspnea (principal)
CPT/HCPCS: 71046; 93017; 93306

== ENCOUNTER 2024-03-08 03:03 | Outpatient (CLI) | payer SELFPAY ==
[2024-03-08 14:22] LABS: Anion Gap 8.6 mmol/L (3-11); BUN 17 mg/dL (7-18); CO2 31.4 mmol/L (21.0-32.0); CREATININE 1.5 mg/dL (0.70-1.30); Calcium 9.1 mg/dL (8.5-10.1); Chloride 100 mmol/L (98-107); Estimated GFR 52.64 (mL/min/1.73m2); Glucose 98 mg/dL (74-106); Potassium 3.1 mmol/L (3.5-5.1); Sodium 140 mmol/L (136-145)
== END 2024-03-08 03:04 | disposition home or self-care (01) ==
LOC: LBO 03:03
PROVIDERS: PCP Student in an Organized Health Care Education/Training Program; Visit Provider Student in an Organized Health Care Education/Training Program
DX: I10 Essential (primary) hypertension (principal)
CPT/HCPCS: 36415; 80048

== ENCOUNTER 2024-03-30 03:05 | Outpatient (CLI) | payer SELFPAY ==
[2024-03-30 13:30] LABS: Anion Gap 9.1 mmol/L (3-11); BUN 17 mg/dL (7-18); CO2 26.9 mmol/L (21.0-32.0); CREATININE 1.3 mg/dL (0.70-1.30); Calcium 8.8 mg/dL (8.5-10.1); Chloride 101 mmol/L (98-107); Glucose 139 mg/dL (74-106); Potassium 3.4 mmol/L (3.5-5.1); Sodium 137 mmol/L (136-145)
== END 2024-03-30 03:06 | disposition home or self-care (01) ==
PROVIDERS: PCP Student in an Organized Health Care Education/Training Program; Visit Provider Student in an Organized Health Care Education/Training Program
DX: I10 Essential (primary) hypertension (principal)
CPT/HCPCS: 36415; 80048; 83735

== ENCOUNTER 2024-04-20 16:11 | Outpatient (REF) | payer SELFPAY ==
[2024-04-20 16:37] LABS: COVID-19 PCR Negative (Negative); Influenza A PCR Negative (Negative); Influenza B PCR Negative (Negative); RSV PCR Negative (Negative)
[2024-04-20 16:41] LABS: Source Nasopharynx
== END 2024-04-20 16:12 | disposition home or self-care (01) ==
LOC: NCHCN 16:11
PROVIDERS: PCP Student in an Organized Health Care Education/Training Program; Visit Provider Student in an Organized Health Care Education/Training Program
DX: R05.9 Cough, unspecified (principal)
CPT/HCPCS: 87637

== ENCOUNTER 2024-11-03 17:32 | Outpatient (REF) | payer SELFPAY ==
[2024-11-03 19:58] LABS: ALT 37 U/L (16-63); AST 22 U/L (15-37); Albumin 4.2 g/dL (3.4-5.0); Alkaline Phosphatase 82 U/L (46-116); BUN 17 mg/dL (7-18); Bilirubin, Total 1.7 mg/dL (0.2-1.0); CREATININE 1.1 mg/dL (0.70-1.30); Calcium 9.3 mg/dL (8.5-10.1); Calculated LDL 96 mg/dL (<100); Chloride 100 mmol/L (98-107); Cholesterol 203 mg/dL (<200); Estimated GFR 76.37 (mL/min/1.73m2); Glucose 99 mg/dL (74-106); HDL Cholesterol 48 mg/dL (>or=40); Potassium 3.7 mmol/L (3.5-5.1); Sodium 136 mmol/L (136-145); Total Protein 7.5 g/dL (6.4-8.2); Triglyceride 295 mg/dL (<150)
[2024-11-03 20:07] LABS: COMMENT (LAB VIEW ONLY) 25.89 mg/dL
== END 2024-11-03 17:33 | disposition home or self-care (01) ==
LOC: NCHCN 17:32
PROVIDERS: PCP Student in an Organized Health Care Education/Training Program; Visit Provider Student in an Organized Health Care Education/Training Program
DX: I10 Essential (primary) hypertension (principal); Z13.220 Encounter for screening for lipoid disorders
CPT/HCPCS: 80053; 80061; 82043; 82570; 83735

== ENCOUNTER 2025-03-24 16:30 | Outpatient (CLI) | payer SELFPAY ==
[2025-03-24 13:18] LABS: Abs Immature Grans 0.01 10^3/uL (0.0-0.06); ESR 5 mm/hr (0-20); HCT 45.1 % (40.0-50.0); HGB 15.6 g/dL (13.5-17.5); Immature Grans % 0.2 %; MCH 30.8 pg (27.0-33.0); MCHC 34.6 % (32.0-36.0); MCV 89 fL (80-95); MPV 10.4 fL (8.0-11.0); Platelet Count 194 10^3/uL (130-400); RBC 5.06 10^6/uL (4.36-5.78); RDW 12.6 % (11.8-14.1); RDW-SD 41.3 fL; WBC 4.98 10^3/uL (4.4-10.8)
[2025-03-24 13:44] LABS: D-Dimer 340 ng/mlFEU (<500)
[2025-03-24 14:50] LABS: ALT 63 U/L (16-63); AST 29 U/L (15-37); Albumin 4.0 g/dL (3.4-5.0); Alkaline Phosphatase 86 U/L (46-116); Anion Gap 6.9 mmol/L (3-11); BUN 10 mg/dL (7-18); Bilirubin, Total 0.6 mg/dL (0.2-1.0); CO2 30.1 mmol/L (21.0-32.0); Calcium 9.0 mg/dL (8.5-10.1); Chloride 101 mmol/L (98-107); Estimated GFR 52.31 (mL/min/1.73m2); Glucose 109 mg/dL (74-106); Potassium 3.5 mmol/L (3.5-5.1); Sodium 138 mmol/L (136-145); Total Protein 7.3 g/dL (6.4-8.2)
[2025-03-24 14:51] LABS: C-Reactive Protein < 0.50 mg/dL (<or=0.5)
== END 2025-03-24 16:31 | disposition home or self-care (01) ==
LOC: LBO 16:33
PROVIDERS: PCP Student in an Organized Health Care Education/Training Program; Visit Provider Student in an Organized Health Care Education/Training Program
DX: R22.42 Localized swelling, mass and lump, left lower limb (principal)
CPT/HCPCS: 80053; 85652; 85025; 85379; 86140

== ENCOUNTER 2025-03-31 10:59 | Emergency (ER) | payer SELFPAY ==
[2025-03-31 11:03] VITALS: BP 145/97; PULSE 83; RESP 18; TEMP 36.6; O2SAT 93
[2025-03-31 11:06] VITALS: BP 145/97; PULSE 83; RESP 18; TEMP 36.6; O2SAT 93
--- NOTE | 2025-03-31 11:15 | DI.CT_ITS ---
Exam(s) CT ABDOMEN PELVIS W EXAM: CT ABDOMEN PELVIS W CLINICAL HISTORY: abd pain bloating, periumbilical hernia, vomit TECHNIQUE: Imaging Protocol: Axial computed tomography images with coronal and sagittal reformatted images were created and reviewed. CONTRAST MATERIAL: Intravenous: Omnipaque 350 Contrast volume:100 mL Oral: No COMPARISON: No exams were available for comparison FINDINGS: ABDOMEN: Lung Bases: There is a small hiatal hernia. Liver: There is diffuse decreased attenuation of the liver consistent with fatty infiltration. There is focal fatty sparing in the left lobe and along the gallbladder fossa. No measurable mass. Portal, Superior Mesenteric, and Splenic Veins: Unremarkable. Gallbladder and Biliary Tract: No radiodense calculus or dilation. Pancreas: Normal density, no abnormal calcifications or inflammatory process. Spleen: Normal. Adrenals: No masses seen. Kidneys: Normal size, contour and axis. No radiodense stones or obstructive uropathy. No masses seen. Abdominal Aorta: Abdominal portion non-dilated. Atherosclerotic calcification is present. Bowel: No obstruction or bowel wall thickening. Appendix is unremarkable. There is diverticulosis of the colon without evidence of acute diverticulitis. Peritoneal Cavity: No ascites, collection or mesenteric inflammatory response. No free air. Lymph Nodes: Within normal limits. Bones: Within normal limits for the patient's age. There is L5 spondylolysis with no significant spondylolisthesis. Soft Tissues: There is a fat containing umbilical hernia. There is a small fat containing right inguinal hernia. PELVIS: Bladder: Symmetric distention, no gross wall thickening. Reproductive Organs: Unremarkable as visualized. Lymph Nodes: Within normal limits. Bones: Within normal limits for the patient's age. IMPRESSION: 1. There is a fat containing umbilical hernia. There is no stranding around the hernia to suggest inflammation. No focal fluid collection is seen. 2. No acute abdominal or pelvic process. RADIATION DOSE DELIVERED: 635.81mGy.cm Total DLP DATA REPOSITORY: All CT scans at this facility are submitted to the National Radiology Data Registry (NRDR) Dose Index Registry (DIR) with the [employer] (ACR). RADIATION OPTIMIZATION: All CT scans at this facility use at least one of these dose optimization techniques: automated exposure control; mA and/or kV adjustment per patient size (includes targeted exams where dose is matched to clinical indication); or iterative reconstruction.
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
[2025-03-31 11:39] LABS: Abs Immature Grans 0.01 10^3/uL (0.0-0.06); HCT 45.1 % (40.0-50.0); HGB 15.8 g/dL (13.5-17.5); Immature Grans % 0.2 %; MCH 30.9 pg (27.0-33.0); MCHC 35.0 % (32.0-36.0); MCV 88 fL (80-95); MPV 10.8 fL (8.0-11.0); Platelet Count 194 10^3/uL (130-400); RBC 5.12 10^6/uL (4.36-5.78); RDW 12.6 % (11.8-14.1); RDW-SD 41.1 fL; WBC 5.25 10^3/uL (4.4-10.8)
[2025-03-31 11:49] LABS: Glucose Negative (Negative)
[2025-03-31 11:52] LABS: INR 1.0 (0.9-1.1); Prothrombin Time 10.3 sec (9.1-11.1)
[2025-03-31 12:01] LABS: Albumin 3.7 g/dL (3.4-5.0); Alkaline Phosphatase 82 U/L (46-116); Anion Gap 12.7 mmol/L (3-11); BUN 16 mg/dL (7-18); Bilirubin, Total 0.8 mg/dL (0.2-1.0); CO2 24.3 mmol/L (21.0-32.0); Calcium 8.3 mg/dL (8.5-10.1); Chloride 98 mmol/L (98-107); Estimated GFR 68.38 (mL/min/1.73m2); Glucose 171 mg/dL (74-106); Lipase 46 U/L (<78); Magnesium 1.8 mg/dL (1.8-2.4); Potassium 3.6 mmol/L (3.5-5.1); Sodium 135 mmol/L (136-145); Total Protein 7.5 g/dL (6.4-8.2)
[2025-03-31 12:54] LABS: ALT 24 U/L (16-63); AST 32 U/L (15-37)
[2025-03-31] MEDS: Omnipaque 350 MG/ML 100 ML BTL IJ (14:10)
[2025-03-31] MEDS: Normal Saline Flush 10 ML SYR IVP (14:10)
[2025-03-31] MEDS: Normal Saline - Diluent 50 ML VIAL IJ (14:10)
[2025-03-31] MEDS: Normal Saline 500 ML IV (14:25)
[2025-03-31 14:26] VITALS: BP 118/77; PULSE 67; RESP 16; TEMP 36.7; O2SAT 97
[2025-03-31 19:54] LABS: Hepatitis A Antibody IgM Negative (Negative); Hepatitis C Ab w Rflx HCV PCR Negative (Negative)
== END 2025-03-31 15:10 | disposition home or self-care (01) ==
PROVIDERS: Emergency Provider Registered Nurse Emergency; PCP Student in an Organized Health Care Education/Training Program
DX: K42.9 Umbilical hernia without obstruction or gangrene (principal); K76.0 Fatty (change of) liver, not elsewhere classified; R10.84 Generalized abdominal pain; R14.0 Abdominal distension (gaseous)
CPT/HCPCS: 36415; 80053; 83690; 86704; 86709; 86803; 87340; 96360; 99285; 74177; 81003; 83735; 85025; 85610; 99284; J3490

== ENCOUNTER 2025-06-15 11:25 | Outpatient (CLI) | payer MEDICAID, SELFPAY ==
[2025-06-15 12:43] LABS: Vitamin D 25 Total 25 ng/mL (30-100)
== END 2025-06-15 11:26 | disposition home or self-care (01) ==
PROVIDERS: PCP Student in an Organized Health Care Education/Training Program; Visit Provider Student in an Organized Health Care Education/Training Program
DX: E83.51 Hypocalcemia (principal)
CPT/HCPCS: 36415; 82306; 82330; 83970